=== PATIENT | female | born 1960 | race Caucasian/White ===

== ENCOUNTER → 2016-08-07 | Outpatient (CLI) | payer OTHER ==
--- NOTE | 2016-08-08 09:02 | XR ---
EXAMINATION TYPE: XR hand complete LT DATE OF EXAM: 08/07/2016 5:08 PM COMPARISON: NONE HISTORY: 56-year-old female with hand injury TECHNIQUE: 4 views FINDINGS: There is a minimally displaced fracture of the ulnar base of the second proximal phalanx. This is an intra-articular fracture that extends to the second MCP joint. Fracture fragment measures approximate ly 6 x 4 mm and there are some resorptive changes of healing along the fracture margins. Mild scatter ed osteoarthritic changes in the DIP joints. No other acute fracture or dislocation is seen. IMPRESSION: Subacute, minimally displaced, intra-articular fracture at the ulnar sided second proximal phalangeal base. There are resorptive changes of early healing.
== END | disposition home or self-care (01) ==
LOC: RADXRYALE 16:06
PROVIDERS: ATTEND Internal Medicine
DX: S62.611A Displaced fracture of proximal phalanx of left index finger, initial encounter for closed fracture (principal)

== ENCOUNTER 2016-09-22 21:01 | Emergency (ER) | payer OTHER ==
[2016-09-22 21:31] VITALS: RESP 18
[2016-09-22] MEDS ORDERED: LORazepam 1 MG TAB PO STA (22:50)
[2016-09-22] MEDS ORDERED: MECLIZINE 12.5 MG TAB PO STA (22:50)
--- NOTE | 2016-09-22 22:55 | ED ---
General Adult HPI - General Chief complaint: Dizziness Stated complaint: Dizziness/lightheaded/Vomiting Time Seen by Provider: 09/22/16 22:26 Source: patient, family, RN notes reviewed Mode of arrival: wheelchair Limitations: no limitations - History of Present Illness Initial comments: Chief complaint and history of present illness this is a 56-year-old female complaint of dizziness history approximate 6 PM this evening. Persists. She reports any head movement increases the problem nausea but no vomiting. Denies any headache. She states she has had nasal congestion and sinus pressure over the past several weeks. Otherwise no other complaints. Patient denies ever having vertigo in the past. - Related Data Home Medications Medication Instructions Recorded Confirmed Albuterol Inhaler [Ventolin 1 - 2 puff INHALATION Q6HR PRN 12/21/14 12/21/14 Inhaler] Baclofen 10 - 20 mg PO BID PRN 12/21/14 12/21/14 Docqlace Stool Softner 2 cap PO DAILY 12/21/14 12/21/14 Ibuprofen [Motrin] 800 mg PO Q8HR PRN 12/21/14 12/21/14 Montelukast Sodium [Singulair] 10 mg PO HS 12/21/14 12/21/14 Omeprazole [PriLOSEC] 20 mg PO DAILY 12/21/14 12/21/14 Simvastatin [Zocor] 20 mg PO MOWEFR 12/21/14 12/23/14 Thyroid,Pork [[place] Thyroid] 60 mg PO QAM 12/21/14 12/21/14 Venlafaxine HCl [Effexor] 100 mg PO QAM 12/21/14 12/21/14 Previous Rx's Medication Instructions Recorded Meclizine [Antivert] 25 mg PO TID #30 tab 09/22/16 Allergies Allergy/AdvReac Type Severity Reaction Status Date / Time amoxicillin Allergy Diarrhea Verified 09/22/16 21:31 Review of Systems ROS Statement: Those systems with pertinent positive or pertinent negative responses have been documented in the HPI. Review of systems patient has nasal congestion, but denies chest pain shortness breath GI/ problems. She is dizzy with head movement. Describes his dizziness head spinning with certain movements it slows down when she stops moving her head and look straight forward. No pain behind the eyes. All systems were reviewed. Past medical problems significant for asthma, GERD, sleep apnea constipation. Surgeries hysterectomy. Family history mother had liver issues. Father pancreatic cancer. Patient has ALLERGIES to amoxicillin she quit smoking 4 years ago and drink alcohol socially. ROS Other: All systems not noted in ROS Statement are negative. Past Medical History Past Medical History: Asthma, GERD/Reflux, Sleep Apnea/CPAP/BIPAP Additional Past Medical History / Comment(s): CONSTIPATION, CURRENT BRUISE TO INNER RT LOWER ARM,STEROIDS WITHIN 3 MOS History of Any Multi-Drug Resistant Organisms: None Reported Past Surgical History: Hysterectomy Past Anesthesia/Blood Transfusion Reactions: Motion Sickness Past Psychological History: No Psychological Hx Reported Smoking Status: Former smoker Past Alcohol Use History: None Reported Additional Past Alcohol Use History / Comment(s): QUIT SMOKING 2012, SMOKED FOR APPROX 15 YRS 1 PACK PER WEEK Past Drug Use History: None Reported - Past Family History Father Family Medical History: Cancer Additional Family Medical History / Comment(s): PANCREATIC, ANEURYSM Mother Family Medical History: Liver Disease General Exam - General Exam Comments Initial Comments: General: The patient is awake and alert, turning her head causes her to be dizzy. Nausea no vomiting no pain. Vital signs temp 97.0 pulse 75 respiratory rate 18 pulse ox 99% room air blood pressure 145/75. Mildly elevated systolic noted the patient is in a stressful situation. Eye: Pupils are equal, round and reactive to light, extra-ocular movements are intact ; there is normal conjunctiva bilaterally. No signs of icterus. Ears, nose, mouth and throat: There are moist mucous membranes and no oral lesions. Neck: The neck is supple, there is no tenderness, no carotid bruits, no anterior cervical lymphadenopathy, thyroid not enlarged. Cardiovascular: There is a regular rate and rhythm. No murmur, rub or gallop is appreciated. Respiratory: Lungs are clear to auscultation, respirations are non-labored, breath sounds are equal. No wheezes, stridor, rales, or rhonchi. Gastrointestinal: Soft, non-distended, non-tender abdomen without masses or organomegaly noted. There is no rebound or guarding present. Back: No back pain Musculoskeletal: Full range of motion upper and lower extremities without pain or difficulty.. Neurological: CN II-XII intact, There are no obvious motor or sensory deficits. Coordination appears grossly intact. Speech is normal. No focal or lateralizing findings Skin: Skin is warm and dry and no rashes or lesions are noted. Limitations: no limitations Course Vital Signs 09/22/16 09/22/16 21:29 23:30 Temperature 97.0 F L 97.1 F L Pulse Rate 75 68 Respiratory 18 18 Rate Blood Pressure 145/75 155/76 O2 Sat by Pulse 99 96 Oximetry EKG Findings - EKG Comments: EKG Findings:: EKG was done and reviewed at 2139 showing normal sinus rhythm no acute ST elevation no ectopy no ischemic changes. Rate 72 ND interval 148 QRS [address] QT [address] Danielson Medical Decision Making - Medical Decision Making Medical decision-making. The patient was given by mouth Ativan and meclizine. At this time she says she is feeling much better no longer dizzy. The plan the patient be discharged home friend will drive. She'll be given a prescription for meclizine to take one tablet 3 times daily if when she wakes up tomorrow or the next day she has dizziness. Otherwise follow-up with her family physician Disposition Clinical Impression: Benign positional vertigo Disposition: HOME SELF-CARE Condition: Good Instructions: Dizziness (ED) Additional Instructions: Take meclizine 1 tablet 3 times daily if dizziness persists. Follow-up with family physician or return emergency room as needed Prescriptions: Meclizine [Antivert] 25 mg PO TID #30 tab Time of Disposition: 23:37
[2016-09-22 23:35] VITALS: BP 155/76; PULSE 68; TEMP 97.1
== END 2016-09-22 23:50 | disposition home or self-care (01) ==
LOC: EC 21:01
DX: H81.13 Benign paroxysmal vertigo, bilateral (principal); Z88.0 Allergy status to penicillin; Z79.899 Other long term (current) drug therapy; K59.00 Constipation, unspecified; J45.909 Unspecified asthma, uncomplicated; K21.9 Gastro-esophageal reflux disease without esophagitis; Z87.891 Personal history of nicotine dependence
CPT/HCPCS: 93005; 99284

== ENCOUNTER → 2016-10-25 | Outpatient (CLI) | payer OTHER ==
--- NOTE | 2016-10-25 13:23 | MM ---
Reason for exam: follow-up at short interval from prior study. Last mammogram was performed 11 months ago. History: Patient is postmenopausal. Benign US biopsy breast VAD LT of the left breast, November 15, 2015. Physical Findings: Nurse did not find any significant physical abnormalities on exam. MG Diagnostic Mammo w CAD ESTEFANIA Bilateral CC and MLO view(s) were taken. Prior study comparison: November 15, 2015, left breast MG diagnostic mammo LT wo CAD. October 24, 2015, bilateral MG screening mammo w CAD. There are scattered fibroglandular densities. Previous mammotome biopsy in the left breast. No significant new findings when compared with previous films. These results were verbally communicated with the patient and result sheet given to the patient on 10/25/16. ASSESSMENT: Benign, BI-RAD 2 RECOMMENDATION: Routine screening mammogram of both breasts in 1 year.
== END | disposition home or self-care (01) ==
LOC: RADMAMWWP 12:34
PROVIDERS: ATTEND Internal Medicine
DX: R92.8 Other abnormal and inconclusive findings on diagnostic imaging of breast (principal)

== ENCOUNTER → 2019-03-22 | Outpatient (CLI) | payer OTHER ==
--- NOTE | 2019-03-22 16:26 | XR ---
EXAMINATION TYPE: XR lumbosacral spine min 4V DATE OF EXAM: 03/22/2019 COMPARISON: None HISTORY: Low back pain TECHNIQUE: Five-view lumbar spine FINDINGS: There 5 lumbar-type vertebral bodies. The pedicles are intact. Facet degenerative changes a re present especially to the mid to lower lumbar spine. No spondylolytic defects are evident. Posteri or disc space narrowing is present L3-4. Milder disc space narrowing posteriorly is present L2-3 poss ibly L5-S1. IMPRESSION: 1. Degenerative disc changes and facet changes lower lumbar spine. 2. No acute abnormality radiographically apparent
== END | disposition home or self-care (01) ==
LOC: RADXRYALE 13:31
PROVIDERS: ATTEND Internal Medicine
DX: M51.37 Other intervertebral disc degeneration, lumbosacral region (principal)
CPT/HCPCS: 72110

== ENCOUNTER → 2019-09-24 | Outpatient (CLI) | payer OTHER ==
--- NOTE | 2019-09-24 11:49 | XR ---
EXAMINATION TYPE: XR ribs LT w pa chest xray DATE OF EXAM: 09/24/2019 COMPARISON: NONE HISTORY: Pain TECHNIQUE: Single view of the chest 4 views of the ribs are submitted. FINDINGS: The lungs are clear. No Evidence for pneumothorax. No evidence for focal contusion. Medi astinal structures are midline. Evaluation of the ribs fails to demonstrate evidence for displaced r ib fracture or secondary sign of rib fracture. IMPRESSION: Negative study
== END | disposition home or self-care (01) ==
LOC: RADXRYALE 11:18
PROVIDERS: ATTEND Internal Medicine
DX: R07.81 Pleurodynia (principal)

== ENCOUNTER 2020-04-04 13:48 | Emergency (ER) | payer OTHER ==
[2020-04-04 13:53] VITALS: TEMP 98.8
[2020-04-04] MEDS ORDERED: IPRATROPIUM-ALBUTEROL 3 ML NEB INHALATION STA (14:01)
[2020-04-04] MEDS ORDERED: predniSONE 20 MG TAB PO STA (14:01)
--- NOTE | 2020-04-04 14:02 | ED ---
SOB HPI - General Chief Complaint: Shortness of Breath Stated Complaint: athsma Time Seen by Provider: 04/04/20 14:00 Source: patient Mode of arrival: ambulatory Limitations: no limitations - History of Present Illness Initial Comments: Patient is a 59-year-old female presenting to the emergency department with chief complaint of shortness of breath. Patient states this started over the last 2 days or so. States this is her typical asthma exacerbation and happens usually when the she mated levels increase. Patient states she has been using her albuterol inhaler with minimal improvement in symptoms. Patient states now she can hear herself wheezing. Patient reports there is a slight, intermittent dry cough but states that is also typical during her asthma exacerbations. Patient does report some tightness in the chest but states that his because of her asthma. Denies any back pain and abdominal pain nausea vomiting diarrhea. Denies any night sweats or chills. Denies otalgia, sore throat, rhinorrhea. - Related Data Home Medications Medication Instructions Recorded Confirmed Albuterol Inhaler (Mhu) [Ventolin 1 - 2 puff INHALATION Q6HR PRN 12/21/14 12/21/14 Inhaler] Baclofen 10 - 20 mg PO BID PRN 12/21/14 12/21/14 Docqlace Stool Softner 2 cap PO DAILY 12/21/14 12/21/14 Ibuprofen [Motrin] 800 mg PO Q8HR PRN 12/21/14 12/21/14 Montelukast Sodium [Singulair] 10 mg PO HS 12/21/14 12/21/14 Omeprazole [PriLOSEC] 20 mg PO DAILY 12/21/14 12/21/14 Simvastatin [Zocor] 20 mg PO MOWEFR 12/21/14 12/23/14 Thyroid,Pork [[place] Thyroid] 60 mg PO QAM 12/21/14 12/21/14 Venlafaxine HCl [Effexor] 100 mg PO QAM 12/21/14 12/21/14 Previous Rx's Medication Instructions Recorded Meclizine [Antivert] 25 mg PO TID #30 tab 09/22/16 predniSONE 50 mg PO DAILY #5 tab 04/04/20 Allergies Allergy/AdvReac Type Severity Reaction Status Date / Time amoxicillin Allergy Diarrhea Verified 04/04/20 13:53 Review of Systems ROS Statement: Those systems with pertinent positive or pertinent negative responses have been documented in the HPI. ROS Other: All systems not noted in ROS Statement are negative. Past Medical History Past Medical History: Asthma, GERD/Reflux, Sleep Apnea/CPAP/BIPAP Additional Past Medical History / Comment(s): CONSTIPATION, CURRENT BRUISE TO INNER RT LOWER ARM,STEROIDS WITHIN 3 MOS History of Any Multi-Drug Resistant Organisms: None Reported Past Surgical History: Hysterectomy Past Anesthesia/Blood Transfusion Reactions: Motion Sickness Past Psychological History: No Psychological Hx Reported Smoking Status: Never smoker Past Alcohol Use History: None Reported Past Drug Use History: None Reported - Past Family History Father Family Medical History: Cancer Additional Family Medical History / Comment(s): PANCREATIC, ANEURYSM Mother Family Medical History: Liver Disease General Exam Limitations: no limitations General appearance: alert, in no apparent distress, obese Head exam: Present: atraumatic, normocephalic, normal inspection Eye exam: Present: normal appearance, PERRL, EOMI Pupils: Present: normal accommodation ENT exam: Present: normal exam, normal oropharynx, mucous membranes moist, TM's normal bilaterally, normal external ear exam Neck exam: Present: normal inspection, full ROM. Absent: tenderness Respiratory exam: Present: wheezes (Diffuse bilateral wheezing). Absent: respiratory distress, accessory muscle use Cardiovascular Exam: Present: regular rate, normal rhythm, normal heart sounds Extremities exam: Present: normal inspection, full ROM, normal capillary refill. Absent: tenderness Back exam: Present: normal inspection, full ROM. Absent: tenderness Neurological exam: Present: alert, oriented X3 Psychiatric exam: Present: normal affect, normal mood Skin exam: Present: warm, dry, intact, normal color Course Vital Signs 04/04/20 04/04/20 04/04/20 13:51 14:32 14:53 Temperature 98.8 F Pulse Rate 82 60 Respiratory 25 H 18 18 Rate Blood Pressure 146/82 165/56 O2 Sat by Pulse 96 95 Oximetry 04/04/20 04/04/20 15:23 15:38 Temperature Pulse Rate 74 78 Respiratory 16 16 Rate Blood Pressure O2 Sat by Pulse Oximetry Medical Decision Making - EKG Data EKG Comments: Sinus rhythm. No ST or T-wave changes. Ventricular rate 77, NE 136, QRS 86, QTC 416. Disposition Clinical Impression: Asthma exacerbation Disposition: HOME SELF-CARE Condition: Stable Instructions (If sedation given, give patient instructions): Asthma (ED) Additional Instructions: Patient 59-year-old male presenting to emergency Department with chief complaint of shortness of breath. Patient does have frequent asthma exacerbation. States this one feels exactly like her previous asthma exacerbation. On physical examination patient has diffuse bilateral wheezing. Is also audible wheezing without auscultation. Her vitals are stable. She is slightly tachypneic on arrival. This improved. Patient was given a DuoNeb treatment 2. She was also given 60 g of prednisone. X-ray reveals chronic changes but no acute processes or infiltrates. EKG shows sinus rhythm. Patient was advised to follow with a primary care physician. Strict return prescribed as were thoroughly discussed the patient was understanding a well. She will be discharged with 5 days of prednisone. Case discussed with physician. Prescriptions: predniSONE 50 mg PO DAILY #5 tab Is patient prescribed a controlled substance at d/c from ED?: No Referrals: Lisa Sequeira MD [Primary Care Provider] - 1-2 days Time of Disposition: 15:43
--- NOTE | 2020-04-04 14:27 | XR ---
EXAMINATION TYPE: XR chest 2V DATE OF EXAM: 04/04/2020 COMPARISON: 09/24/2019 HISTORY: 59 year-old female shortness of breath, asthma exacerbation TECHNIQUE: PA and lateral views FINDINGS: Heart upper limits of normal in size. Some dextroconvex curvature of the thoracic spine. Mild interst itial prominence is unchanged. Strandy left basilar atelectasis. No consolidation or pleural effusion . IMPRESSION: Chronic changes, possible underlying bronchitis or asthma. No focal infiltrate seen.
[2020-04-04 15:53] VITALS: BP 135/75; PULSE 81; RESP 18
== END 2020-04-04 15:53 | disposition home or self-care (01) ==
LOC: EC 13:48
DX: J45.901 Unspecified asthma with (acute) exacerbation (principal); K21.9 Gastro-esophageal reflux disease without esophagitis; G47.30 Sleep apnea, unspecified; Z79.899 Other long term (current) drug therapy; Z79.51 Long term (current) use of inhaled steroids; Z88.0 Allergy status to penicillin; Z99.89 Dependence on other enabling machines and devices
CPT/HCPCS: 99285; 94640; 93005; 71046; J7512

== ENCOUNTER → 2022-11-07 | Outpatient (CLI) | payer OTHER ==
--- NOTE | 2022-11-07 17:22 | XR ---
EXAMINATION TYPE: XR skull complete DATE OF EXAM: 11/07/2022 COMPARISON: NONE HISTORY: Pre-MRI. History of surgery to repair in her bones 40 years ago. TECHNIQUE: Skull complete including AP, PA, and both lateral projections. FINDINGS: No suspicious metallic intracranial foreign body is identified to prevent MRI study. [place] ing soft tissue is unremarkable. Calvarium is intact. IMPRESSION: As above.
== END | disposition home or self-care (01) ==
LOC: RADXRMAIN 16:28
PROVIDERS: ATTEND Physician Assistant
DX: M47.816 Spondylosis without myelopathy or radiculopathy, lumbar region (principal); M43.16 Spondylolisthesis, lumbar region; M51.36 Other intervertebral disc degeneration, lumbar region; M79.12 Myalgia of auxiliary muscles, head and neck; E66.9 Obesity, unspecified; M25.78 Osteophyte, vertebrae
CPT/HCPCS: 70260

== ENCOUNTER → 2023-08-12 | Outpatient (CLI) | payer OTHER ==
--- NOTE | 2023-08-17 14:24 | MM ---
Reason for Exam: Screening (asymptomatic). Last mammogram was performed 6 year(s) and 10 month(s) ago. Patient History: Menarche at age 13. First Full-Term at age 23. Hysterectomy at age 42. Postmenopausal. 11/15/2015, Benign Core Biopsy on the left side. Risk Values: Jenny 5 year model risk: 1.7%. NCI Lifetime model risk: 8.2%. Prior Study Comparison: 10/24/2015 Bilateral Screening Mammogram, [facility]. 11/15/2015 Left Diagnostic Mammogram, [facility]. 10/25/2016 Bilateral Diagnostic Mammogram, [facility]. Tissue Density: The breast tissue is almost entirely fat. Findings: Analyzed By CAD. The pattern is symmetrical and stable. No significant interval changes. Some very faint heterogenous calcification is adjacent to a larger benign coarse calcification upper outer right breast. This however appears stable from comparison 2017. No suspicious groups of microcalcifications, spiculated or lobular masses, architectural distortion or other secondary signs of malignancy are mammographically apparent. Overall Assessment: Benign, BI-RAD 2 Management: Screening Mammogram of both breasts in 1 year. A negative mammogram report should not preclude additional follow up of suspicious palpable abnormalities. Patient should continue monthly self breast exam. A clinical breast exam by your physician is recommended on an annual basis and results should be correlated with mammographic findings. Electronically signed and approved by: Refugio Chappell D.O. Radiologis
== END | disposition home or self-care (01) ==
LOC: RADMAMWWP 14:37
PROVIDERS: ATTEND Family Medicine
DX: Z12.31 Encounter for screening mammogram for malignant neoplasm of breast (principal); Z78.0 Asymptomatic menopausal state
CPT/HCPCS: 77067